=== PATIENT | male | born 2000 | race Hispanic/Latino ===

== ENCOUNTER 2023-10-22 14:52 | Emergency (ER) | payer SELFPAY ==
[~2023-10-22] VITALS: Ht 170.2 cm; Wt 85.0 kg
[2023-10-22 15:00] VITALS: BP 117/78
[2023-10-22 15:06] VITALS: BP 117/78
[2023-10-22] MEDS ORDERED: PERMETHRIN5 % EX ×2 (15:10→15:51)
[2023-10-22] MEDS ORDERED: SB ALLERGY10 MG PO ×2 (15:10→15:51)
== END 2023-10-22 15:27 | disposition home or self-care (01) | DRG 607 ==
LOC: ED 14:52
DX: B86 Scabies (principal)